=== PATIENT | female | born 1965 | race Caucasian/White ===

== ENCOUNTER 2020-05-14 19:13 | Emergency (ER) | payer MEDICAID ==
[~2020-05-14] VITALS: Ht 157.5 cm; Wt 81.2 kg
[2020-05-14 19:24] VITALS: BP 159/81
--- NOTE | 2020-05-14 19:33 | NUR ---
AMBULATES TO BED 07 WITH UPRIGHT STEADY GAIT.
--- NOTE | 2020-05-14 19:35 | NUR ---
PT SITTING ON EDGE OF BED WITH GUARDING AND GRIMACING. A/O X 4, BREATHING EVEN, UNLABORED.
[2020-05-14] MEDS ORDERED: NACL 0.9% 1,000 ML IV ONE (19:45)
--- NOTE | 2020-05-14 19:54 | NUR ---
Dr. Cabrera examining patient.
[2020-05-14] MEDS ORDERED: KETOROLAC 30 MG/ML VIAL IVP ONE (20:05)
[2020-05-14 20:15] LABS: BASOPHILS # (AUTO) 0.1 K/uL (0.00-0.22); BASOPHILS % (AUTO) 0.4 % (0.0-2.0); EOSINOPHILS # (AUTO) 0.1 K/uL (0-0.4); EOSINOPHILS % (AUTO) 0.7 % (0.0-4.0); HEMATOCRIT 40.7 % (36-48); HEMOGLOBIN 13.4 g/dL (12.0-16.0); LYMPHOCYTES # (AUTO) 1.8 K/uL (2.5-16.5); MEAN CORPUSCULAR HEMOGLOBIN 28 pg (27-31); MEAN CORPUSCULAR HGB CONC 33 g/dL (33-37); MEAN CORPUSCULAR VOLUME 86.1 fL (80-94); MONOCYTES # (AUTO) 0.6 K/uL (0.8-1.0); MONOCYTES % (AUTO) 4.2 % (1.7-9.3); NEUTROPHILS # (AUTO) 12.3 K/uL (1.8-7.7); NEUTROPHILS % (AUTO) 82.7 % (42.2-75.2); PLATELET COUNT (AUTO) 243 K/uL (140-450); RED BLOOD CELL COUNT(AUTO) 4.73 MIL/uL (4.20-5.40); WHITE BLOOD COUNT (AUTO) 14.9 K/uL (4.8-10.8)
--- NOTE | 2020-05-14 20:24 | NUR ---
PT TAKEN TO CT VIA GURNEY BY [employer].
[2020-05-14 20:27] LABS: ALBUMIN 4.3 g/dL (3.4-5.0); ANION GAP 13.9 (8-16); CARBON DIOXIDE 27.4 mmol/L (21-32); CREATININE 0.7 mg/dL (0.6-1.3); POTASSIUM 4.3 mmol/L (3.5-5.1); TOTAL BILIRUBIN 0.5 mg/dL (0.0-1.0)
--- NOTE | 2020-05-14 20:30 | NUR ---
30 MG IVP TORADOL GIVEN FOR 05/28 LOWER ABD/GROIN PAIN. WILL CONTINUE TO MONITOR.
--- NOTE | 2020-05-14 20:35 | NUR ---
PT RETURN FROM CT
--- NOTE | 2020-05-14 20:35 | NUR ---
PT RETURNS FROM CT VIA [facility]. NO DISTRESS AT THIS TIME.
--- NOTE | 2020-05-14 20:38 | NUR ---
PT REPORTS IMPROVMENT IN PAIN, 6/10.
[2020-05-14] MEDS ORDERED: cefTRIAXone 1,000 MG VIAL ONE (20:45)
[2020-05-14 20:56] VITALS: BP 131/76
--- NOTE | 2020-05-14 21:31 | NUR ---
Patient discharged with v/s stable. Written and verbal after care instructions given and explained. Patient alert, oriented and verbalized understanding of instructions. Ambulatory with steady gait. All questions addressed prior to discharge. ID band removed. Patient advised to follow up with PMD. Rx of FLOMAX, NORCO, KEFLEX, MOTRIN given. Patient educated on indication of medication including possible reaction and side effects. Opportunity to ask questions provided and answered.
== END 2020-05-14 21:31 | disposition home or self-care (01) ==
LOC: MED 19:13
DX: R10.30 Lower abdominal pain, unspecified (principal); N23 Unspecified renal colic; I10 Essential (primary) hypertension; Z98.890 Other specified postprocedural states
CPT/HCPCS: 36415; 74176; 80053; 81002; 81025; 85025; 96361; 96365; 96375; 99284; J0696; J1885